=== PATIENT | male | born 1980 | race Caucasian/White ===

== ENCOUNTER 2020-05-07 10:49 | Outpatient (REF) | payer OTHER, SELFPAY ==
[2020-05-07 11:28] LABS: MANUAL DIFF FLAG NO
[2020-05-07 11:32] LABS: Basophils Percent Auto 0.5 % (0-2); Eosinophils Absolute Auto 0.1 X10*3/uL (0.0-0.4); Eosinophils Percent Auto 2.1 % (0-4); Hematocrit 48.8 % (42-52); Hemoglobin 16.8 g/dl (14.0-18.0); Imm Gran Abs Auto 0.01 X10*3/uL (0.00-0.03); Imm Gran Pct Auto 0.2 % (0.0-0.4); Lymphocytes Absolute Auto 1.8 X10*3/uL (1.2-4.9); Lymphocytes Percent Auto 30.2 % (20-40); Mean Corpuscular HGB Conc 34.4 g/dl (31.0-36.0); Mean Corpuscular Hemoglobin 31.3 pg (27.0-33.0); Mean Platelet Volume 9.7 fL (9.4-12.4); Monocytes Absolute Auto 0.7 X10*3/uL (0.1-1.2); Monocytes Percent Auto 12.6 % (2-11); Neutrophils Absolute Auto 3.2 X10*3/uL (2.0-8.3); Neutrophils Percent Auto 54.4 % (45-73); Platelet Count 223 X10*3/uL (160-400); Red Blood Count 5.36 X10*6/uL (4.60-5.80); Red Cell Distribution Width 13.2 % (11.0-16.0); White Blood Count 5.8 X10*3/uL (4.8-10.8)
[2020-05-07 12:10] LABS: Alanine Aminotransferase 35 U/L (0-40); Albumin Level 4.5 g/dL (3.5-5.0); Alkaline Phosphatase 56 U/L (39-117); Anion Gap 15 (12-20); Aspartate Amino Transferase 31 U/L (5-37); Bilirubin Total 1.1 mg/dL (0.0-1.0); Blood Urea Nitrogen 21 mg/dL (9-16); Carbon Dioxide 26 mmol/L (22-29); Chloride 102 mmol/L (96-108); Cholesterol 246 mg/dL; Estimated Glomerular Filt Rate > 60; Glucose Fasting 86 mg/dL (60-99); HDL Cholesterol 71 mg/dL; LDL Cholesterol Calculated 140 mg/dl; Potassium 4.6 mmol/L (3.3-5.1); Sodium 138 mmol/L (135-145); Total Protein 7.2 g/dL (6.5-8.0); Triglycerides 177 mg/dL
[2020-05-07 12:20] LABS: TSH reflex Free T4 3.38 uIU/mL (0.32-4.0)
[2020-05-10 10:52] LABS: Vitamin D 25-OH, D2 <4 ng/mL; Vitamin D 25-OH, D3 30 ng/mL; Vitamin D 25-OH, Total 30 ng/mL (30-100)
== END 2020-05-07 10:50 | disposition home or self-care (01) ==
LOC: HO.LAB 10:49
PROVIDERS: PCP Internal Medicine; Visit Provider Internal Medicine
DX: E55.9 Vitamin D deficiency, unspecified (principal); E66.9 Obesity, unspecified; E78.5 Hyperlipidemia, unspecified
CPT/HCPCS: 36415; 80053; 80061; 82306; 84443; 85025

== ENCOUNTER 2020-10-28 10:33 | Outpatient (REF) | payer OTHER, SELFPAY ==
[2020-10-28 11:42] LABS: MANUAL DIFF FLAG NO
[2020-10-28 11:51] LABS: Basophils Percent Auto 0.5 % (0-2); Eosinophils Absolute Auto 0.1 X10*3/uL (0.0-0.4); Eosinophils Percent Auto 0.9 % (0-4); Hemoglobin 16.6 g/dl (14.0-18.0); Imm Gran Abs Auto 0.02 X10*3/uL (0.00-0.03); Imm Gran Pct Auto 0.2 % (0.0-0.4); Lymphocytes Absolute Auto 1.7 X10*3/uL (1.2-4.9); Lymphocytes Percent Auto 18.8 % (20-40); Mean Corpuscular HGB Conc 33.2 g/dl (31.0-36.0); Mean Corpuscular Hemoglobin 29.4 pg (27.0-33.0); Mean Corpuscular Volume 88.7 fL (80-98); Mean Platelet Volume 10.2 fL (9.4-12.4); Monocytes Absolute Auto 0.7 X10*3/uL (0.1-1.2); Monocytes Percent Auto 7.7 % (2-11); Neutrophils Absolute Auto 6.4 X10*3/uL (2.0-8.3); Neutrophils Percent Auto 71.9 % (45-73); Platelet Count 232 X10*3/uL (160-400); Red Blood Count 5.64 X10*6/uL (4.60-5.80); White Blood Count 8.9 X10*3/uL (4.8-10.8)
[2020-10-28 12:16] LABS: Alanine Aminotransferase 34 U/L (0-40); Albumin Level 4.6 g/dL (3.5-5.0); Alkaline Phosphatase 59 U/L (39-117); Anion Gap 13 (12-20); Aspartate Amino Transferase 24 U/L (5-37); Bilirubin Total 0.8 mg/dL (0.0-1.0); Blood Urea Nitrogen 14 mg/dL (9-16); Calcium 9.4 mg/dL (8.4-10.2); Carbon Dioxide 25 mmol/L (22-29); Chloride 104 mmol/L (96-108); Estimated Glomerular Filt Rate > 60; Glucose Random 87 mg/dL (60-115); Potassium 4.7 mmol/L (3.3-5.1); Sodium 137 mmol/L (135-145); Total Protein 7.2 g/dL (6.5-8.0)
[2020-10-30 21:26] LABS: TS Negative Control Passed; TS Panel A 0; TS Panel B 0; TS Positive Control Passed; TSpotTB Negative (SeeBelow)
== END 2020-10-28 10:34 | disposition home or self-care (01) ==
LOC: HO.LAB 10:33
PROVIDERS: PCP Internal Medicine; Referring Provider Physician Assistant Medical; Visit Provider Internal Medicine
DX: L40.0 Psoriasis vulgaris (principal); L40.59 Other psoriatic arthropathy; Z79.899 Other long term (current) drug therapy
CPT/HCPCS: 36415; 80053; 85025; 86481

== ENCOUNTER 2021-04-30 10:14 | Outpatient (REF) | payer OTHER, SELFPAY ==
[2021-04-30 10:55] LABS: Mean Corpuscular Hemoglobin 30.1 pg (27.0-33.0)
[2021-04-30 10:57] LABS: Basophils Absolute Auto 0.1 X10*3/uL (0.0-0.2); Basophils Percent Auto 0.8 % (0-2); Eosinophils Absolute Auto 0.1 X10*3/uL (0.0-0.4); Eosinophils Percent Auto 1.8 % (0-4); Hematocrit 47.7 % (42.0-52.0); Hemoglobin 16.2 g/dl (14.0-18.0); Imm Gran Abs Auto 0.02 X10*3/uL (0.00-0.03); Imm Gran Pct Auto 0.3 % (0.0-0.4); Lymphocytes Percent Auto 30.7 % (20-40); Mean Corpuscular Volume 88.7 fL (80.0-98.0); Monocytes Absolute Auto 0.7 X10*3/uL (0.1-1.2); Monocytes Percent Auto 10.1 % (2-11); Neutrophils Absolute Auto 3.7 x10*3/uL (2.0-8.3); Neutrophils Percent Auto 56.3 % (45-73); Red Blood Count 5.38 X10*6/uL (4.60-5.80); Red Cell Distribution Width 12.3 % (11.0-16.0)
[2021-04-30 10:58] LABS: White Blood Count 6.6 X10*3/uL (4.8-10.8)
[2021-04-30 11:26] LABS: Alanine Aminotransferase 71 U/L (0-40); Albumin Level 4.5 g/dL (3.5-5.0); Alkaline Phosphatase 67 U/L (39-117); Anion Gap 13 (12-20); Aspartate Amino Transferase 31 U/L (5-37); Bilirubin Total 0.8 mg/dL (0.0-1.0); Blood Urea Nitrogen 13 mg/dL (9-16); Carbon Dioxide 26 mmol/L (22-29); Chloride 103 mmol/L (96-108); Cholesterol 253 mg/dL; Estimated Glomerular Filt Rate > 60; Glucose Fasting 87 mg/dL (60-99); HDL Cholesterol 48 mg/dL; LDL Cholesterol Calculated 170 mg/dl; Potassium 4.5 mmol/L (3.3-5.1); Sodium 137 mmol/L (135-145); Total Protein 7.2 g/dL (6.5-8.0); Triglycerides 177 mg/dL
[2021-05-02 18:42] LABS: TS Negative Control Passed; TS Panel A 0; TS Panel B 0; TS Positive Control Passed; TSpotTB Negative (Negative)
== END 2021-04-30 10:15 | disposition home or self-care (01) ==
LOC: HO.LAB 10:14
PROVIDERS: PCP Internal Medicine; Visit Provider Internal Medicine
DX: Z11.1 Encounter for screening for respiratory tuberculosis (principal); L40.50 Arthropathic psoriasis, unspecified; E78.5 Hyperlipidemia, unspecified
CPT/HCPCS: 36415; 80053; 80061; 85025; 86481

== ENCOUNTER 2021-04-30 10:47 | Emergency (ER) | payer OTHER, SELFPAY ==
--- NOTE | 2021-04-30 | ECG_ITS ---
Test Reason : SYNCOPE Blood Pressure : / mmHG Vent. Rate : 056 BPM Atrial Rate : 056 BPM P-R Int : 138 ms QRS Dur : 092 ms QT Int : 436 ms P-R-T Axes : 045 041 042 degrees QTc Int : 420 ms Sinus bradycardia Otherwise normal ECG When compared with ECG of 23-JAN-2016 09:51, No significant change was found Referred By: Generic ED Physician Electronically Signed By:SHAMEKA NIÑO MD
[2021-04-30 10:48] VITALS: BP 102/68; PULSE 50; RESP 18; TEMP 36.9; O2SAT 98; BMI 35.9
[2021-04-30 11:03] LABS: Glucose, Whole Blood 94 mg/dL (60-115)
--- NOTE | 2021-04-30 11:20 | ED_ITS ---
HPI - Syncope General Chief Complaint: Syncope Stated Complaint: Syncope Time Seen by Provider: 04/30/21 11:11 Source: patient Mode of arrival: wheelchair Limitations: no limitations History of Present Illness HPI narrative: 40-year-old male who presents emergency department for evaluation of syncopal episode in the phlebotomy department. The patient states that he came to the hospital today to get routine blood work prior to his PCP visit. He states that he was not ill in any way prior to getting his blood drawn. He states that while he was getting his blood drawn, before not miss had to adjust the needle and this made him feel bad. He states that he felt lightheaded and dizzy as if he is going to pass out. He states that his vision then went from grade black and he passed out. It was reported that the patient passed out in his chair and did not fall out of the chair. The patient states this has happened 2 minutes the past when he has gotten his blood drawn. At the time my evaluation, he has no complaints. Related Data Home Medications Medication Instructions Recorded Confirmed adalimumab 40 mg/0.4 mL 40 mg SUBCUT Q2W 04/30/21 04/30/21 subcutaneous pen kit (Humira(CF) Pen) escitalopram oxalate 5 mg tablet 2.5 mg PO DAILY tab 04/30/21 Allergies Allergy/AdvReac Type Severity Reaction Status Date / Time No Known Allergies Allergy Verified 04/30/21 09:53 Review of Systems Verdana 4l Review of Systems: Yes all other systems are reviewed and Verdana 4d are negative [facility] Past Medical History [facility] Narrative: Past medical history: Vasovagal syncope with blood draws. Medical History (Updated 04/30/21 @ 11:26 by Kevin Joseph MD) Alcohol abuse Depression with anxiety Dyslipidemia Encounter for physical examination History of substance abuse Obese Psoriatic arthritis Syncope Surgical History No pertinent past surgical history Family History Family History Mother Breast cancer Father Diabetes Social History Social History Housing: Apartment Alcohol intake: never Patient Tobacco Use Status: Former Tobacco user Tobacco use type: Cigarette e-Cigarette/Vaping Use: Currently Using Second Hand Smoke Exposure: No Use of substances other than those prescribed or required for medical reasons: No Advance Directives: No Advance Directives Information Provided: No service: No Current occupational status: employed Current occupational exposures/hazards: No Physical Exam Verdana 4l Vital Signs: Verdana 4d Verdana 4d Vital Signs: Verdana 4d Verdana 4Bd Last Vital Signs Verdana 4d Inpatient Nursing Aide New 4d Inpatient Nursing Aide New 4d Temp 98.4 F 04/30/21 10:48 Inpatient Nursing Aide New 4d Pulse 50 04/30/21 10:48 Inpatient Nursing Aide New 4d Resp 18 04/30/21 10:48 BP 102/68 04/30/21 10:48 Pulse Ox 98 04/30/21 10:48 BMI result Body Mass Index 35.9 Const: General: cooperative and no acute distress Orientation/consciousness: oriented to person and oriented to place Limitations: no limitations HENMT: Head: Yes normal to inspection, Yes normocephalic and Yes atraumatic Ears: external ears normal General nose exam: Normal external nose present Face and sinus: Yes normal facial exam Mouth: Normal oral and palatal mucosa present Throat: Yes posterior oropharynx normal Eyes: General: appearance normal, both eyes and all related structures Pupils: Equal, round and reactive pupils present Neck: Neck: Yes normal visual inspection, Yes no lymphadenopathy, Yes trachea midline and Yes supple Chest: Chest palpation & inspection: normal inspection of the chest and normal palpation of entire chest wall Resp: Effort & Inspection: normal respiratory effort and able to speak in complete sentences Auscultation: clear to auscultation bilaterally Cardio: Rate: regular rate Rhythm: regular rhythm Heart sounds: S1 normal heart sound present, S2 normal heart sound present and no murmurs GI: Inspection: Yes normal to inspection Palpation (GI): Soft to palpation, nontender and no guarding Auscultation: normal bowel sounds : General: Yes no CVA tenderness Back/Spine/Pelvis: Back: no CVA tenderness Skin: General skin exam: no rashes or lesions noted Neuro: General: oriented to person and oriented to place Cranial nerves: Yes CN's II-XII intact bilaterally and Yes Equal, round and reactive pupils present Cognition (Neuro): normal cognition Motor exam (neuro): 5/5 motor strength present throughout Extrem: General: Yes normal to inspection Psych: Appearance: grossly normal Speech and movement: Normal speech and movement present Affect: normal affect Attitude: cooperative Thought process: Normal thought process present Thought content: Normal thought content present Course Course Course Narrative: 40-year-old male who presents emergency department for evaluation of a syncopal episode that occurred in the phlebotomy department while he was getting his blood drawn. The patient's description of what abdomen is consistent with vasovagal syncope. Here in the emergency department has no complaints he was not ill in any way prior to getting his blood drawn. The patient had a 12 EKG which did reveal a peaked T-waves in V2 and bradycardia but otherwise was a normal EKG. Patient's physical examination was unremarkable. The patient's presentation is consistent with vasovagal syncope. The patient had all of his blood drawn for his routine tests from phlebotomy except for T spot. We will draw this test here in the emergency department and discharge the patient home. MDM - Syncope Lab Data Labs: Lab Results 04/30/21 Range/Units 11:00 POC Glucose 94 (60-115) mg/dL Discharge Plan Discharge Clinical Impression: Vasovagal syncope Patient Disposition: Home, Self-Care Instructions: Syncope (ED) Additional Instructions: You fainted today while you had your blood drawn. This is called vasovagal syncope. Sometimes when you get your blood drawn, it stimulates a nerve in your body called the vagal nerve which then causes your blood pressure to drop and your pulse to slow down which then causes you to pass out. Next time you get your blood drawn tell them that you pass out and that you need to lie down to get your blood drawn. Also tell them you need to lie down for at least 15-20 minutes after the blood draw to make sure that you do not pass out when you get up. Your EKG was unremarkable. The lab was able to draw all of your blood today, except for 1 test called a T spot which we are going to draw here in the emergency department for you. Follow-up with your doctor in 2 days. Please return to the emergency department if your symptoms get worse or if you develop any symptoms that are concerning to you. Prescriptions: No Action Humira(CF) Pen 40 mg/0.4 mL pen injector kit 40 mg subcut Q2W 0RF escitalopram oxalate 5 mg tablet 2.5 mg PO DAILY 0RF
--- NOTE | 2021-04-30 11:35 | PC.NURSE ---
the rest of the labs are being completed from outpatient order
== END 2021-04-30 12:04 | disposition home or self-care (01) ==
PROVIDERS: Emergency Provider Emergency Medicine Emergency Medical Services; PCP Internal Medicine
DX: R55 Syncope and collapse (principal)
CPT/HCPCS: 82947; 93005; 99283; 99284

== ENCOUNTER 2022-12-11 07:19 | Outpatient (REF) | payer OTHER, SELFPAY ==
[2022-12-11 07:47] LABS: MANUAL DIFF FLAG NO
[2022-12-11 08:18] LABS: Basophils Absolute Auto 0.1 X10*3/uL (0.0-0.2); Basophils Percent Auto 0.7 % (0-2); Eosinophils Absolute Auto 0.2 X10*3/uL (0.0-0.4); Eosinophils Percent Auto 2.2 % (0-4); Hematocrit 46.7 % (42.0-52.0); Hemoglobin 15.8 g/dl (14.0-18.0); Imm Gran Abs Auto 0.01 X10*3/uL (0.00-0.03); Imm Gran Pct Auto 0.1 % (0.0-0.4); Lymphocytes Absolute Auto 1.9 X10*3/uL (1.2-4.9); Mean Corpuscular HGB Conc 33.8 g/dl (31.0-36.0); Mean Corpuscular Hemoglobin 29.6 pg (27.0-33.0); Mean Corpuscular Volume 87.5 fL (80.0-98.0); Mean Platelet Volume 10.9 fL (9.4-12.4); Monocytes Absolute Auto 0.7 X10*3/uL (0.1-1.2); Monocytes Percent Auto 9.2 % (2-11); Neutrophils Absolute Auto 4.7 x10*3/uL (2.0-8.3); Neutrophils Percent Auto 62.8 % (45-73); Platelet Count 241 X10*3/uL (160-400); Red Blood Count 5.34 X10*6/uL (4.60-5.80); Red Cell Distribution Width 12.5 % (11.0-16.0); White Blood Count 7.4 X10*3/uL (4.8-10.8)
[2022-12-11 08:45] LABS: Alanine Aminotransferase 31 U/L (0-40); Albumin Level 4.3 g/dL (3.5-5.0); Alkaline Phosphatase 69 U/L (39-117); Anion Gap 12 (12-20); Aspartate Amino Transferase 18 U/L (5-37); Bilirubin Direct 0.2 mg/dL (0.0-0.5); Bilirubin Total 0.6 mg/dL (0.0-1.0); Blood Urea Nitrogen 13 mg/dL (9-16); Carbon Dioxide 24 mmol/L (22-29); Chloride 107 mmol/L (96-108); Estimated Glomerular Filt Rate > 60; Glucose Random 87 mg/dL (60-115); Potassium 4.2 mmol/L (3.3-5.1); Sodium 139 mmol/L (135-145)
[2022-12-11 09:00] LABS: Alanine Aminotransferase 31 U/L (0-40); Albumin Level 4.4 g/dL (3.5-5.0); Alkaline Phosphatase 69 U/L (39-117); Anion Gap 12 (12-20); Aspartate Amino Transferase 18 U/L (5-37); Bilirubin Total 0.6 mg/dL (0.0-1.0); Blood Urea Nitrogen 14 mg/dL (9-16); Calcium 9.9 mg/dL (8.4-10.2); Carbon Dioxide 24 mmol/L (22-29); Chloride 107 mmol/L (96-108); Cholesterol 192 mg/dL (<200); Estimated Glomerular Filt Rate > 60; Glucose Fasting 88 mg/dL (60-99); HDL Cholesterol 39 mg/dL (>40); LDL Cholesterol Calculated 130 mg/dL (<100); Potassium 4.1 mmol/L (3.3-5.1); Sodium 139 mmol/L (135-145); Triglycerides 115 mg/dL (<150)
[2022-12-11 09:08] LABS: TSH reflex Free T4 3.64 uIU/mL (0.32-4.0); Vitamin D 25-OH Total 52.7 ng/mL (>30)
[2022-12-11 09:21] LABS: Folate 14.4 ng/mL (> or = 4.0); Vitamin B12 558 pg/mL (200-900)
[2022-12-11 09:45] LABS: HBS Num1 2.16 mIU/mL (0-7.99); HBc Num1 0.07 S/CO (0.00-0.79); HBsAGNum1 0.32 S/CO (0.00-0.99); Hepatitis B Core Antibody Nonreactive (Nonreactive); Hepatitis B Surface Antigen Negative (Negative); ~HepC Num1 0.26 S/CO (0.00-0.79); ~Hepatitis B Surface Antibody NONREACTIVE (Nonreactive); ~Hepatitis C Antibody Nonreactive (Nonreactive)
[2022-12-13 00:24] LABS: LDL Cholesterol Direct 134 mg/dL (<100)
== END 2022-12-11 07:20 | disposition home or self-care (01) ==
LOC: HO.LAB 07:19
PROVIDERS: Absent Provider Physician Assistant Medical; PCP Internal Medicine; Visit Provider Nurse Practitioner Family
DX: Z00.00 Encounter for general adult medical examination without abnormal findings (principal); E78.5 Hyperlipidemia, unspecified; L40.0 Psoriasis vulgaris
CPT/HCPCS: 36415; 80048; 80053; 80061; 80076; 82248; 82306; 82607; 82746; 83721; 84443; 85025; 86481; 86704; 86706; 86803; 87340

== ENCOUNTER 2023-01-04 06:45 | Outpatient (REF) | payer OTHER, SELFPAY ==
[2023-01-07 00:09] LABS: TS Negative Control Passed; TS Panel A 0; TS Panel B 0; TS Positive Control Passed; TSpotTB Negative (Negative)
== END 2023-01-04 06:46 | disposition home or self-care (01) ==
LOC: HO.LAB 06:45
PROVIDERS: Visit Provider Physician Assistant Medical
DX: L40.0 Psoriasis vulgaris (principal)
CPT/HCPCS: 36415; 86481

== ENCOUNTER 2023-06-14 15:36 | Outpatient (AMB) | payer OTHER, SELFPAY ==
--- NOTE | 2023-06-14 16:00 | MHC.PC.OV ---
Vital Signs 06/14/23 16:04 Height 5 ft 10 in Weight 195 lb 4 oz BMI 28.0 BP 112/78 Blood Pressure Location Lt brachial Position Sitting Respiration 16 Pulse 73 Pulse Source Pulse Oximeter Pulse Oximetry (%) 98 Oxygen Delivery Method Room Air Intake Visit Reasons: Annual Exam Intake Note: Patient is here today for a physical. 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 Accompanied by: Self / Same As Patient Allergies No Known Allergies Allergy (Verified 06/14/23 16:12) Medication List - Last Reconciled 06/14/23 by Kyra Harvey MD adalimumab (Humira) 40 mg subcut Q2W Tobacco use date assessed: 06/14/23 Dental Screening Dental Screen Date: 06/14/23 Did you have a dental visit in the last 12 months?: Yes Did you have a dental problem in the last 6 months where you did not have access to dental care?: No Was dental information given to patient?: Patient has dentist HPI HPI Comments History of Present Illness Details This is a 42-year-old male with psoriatic arthritis that comes for his physical exam. Complains of hip pain that has been bothering him for few months. Also has right lower quadrant abdominal pain that also has been present for a few months. No change in bowel habits. Says that he urinates more frequently. [facility] Medical History Syncope Encounter for physical examination Dyslipidemia Psoriatic arthritis History of substance abuse Alcohol abuse Depression with anxiety Obese Surgical History No pertinent past surgical history Family History Mother Breast cancer Father Diabetes Social History (Updated 06/14/23 @ 16:15 by Kyra Harvey MD) Housing: Apartment Alcohol intake: never Patient Tobacco Use Status: Former Tobacco user Tobacco use type: Cigarette e-Cigarette/Vaping Use: Former Use Second Hand Smoke Exposure: No service: No Current occupational status: employed Current occupational exposures/hazards: No Cognitive needs: No Hearing needs: No Vision needs: No Questionnaire PHQ-9 Over the last 2 weeks, how often have you been bothered by any of the following problems? 1. Little interest or pleasure in doing things: not at all 2. Feeling down, depressed, or hopeless: not at all 3. Trouble falling or staying asleep, or sleeping too much: not at all 4. Feeling tired or having little energy: not at all 5. Poor appetite or overeating: not at all 6. Feeling bad about yourself - or that you are a failure or have let yourself or your family down: not at all 7. Trouble concentrating on things, such as reading the newspaper or watching television: not at all 8. Moving or speaking so slowly that other people could have noticed. Or the opposite - being so fidgety or restless that you have been moving around a lot more than usual: not at all 9. Thoughts that you would be better off or of hurting yourself in some way: not at all Total score: 0 Depression Screening Interpretation: Negative Depression Screening Done: Yes 00651 - PHQ-9 Billing: Yes Source: Developed by Drs. Selvin Lynn, Prema Ramirez, Sam Dunham and colleagues, with an educational danis from [employer]. Thrive Questionnaire Date Thrive assessed: 06/14/23 I am a: Patient What is your living situation today?: I have a steady place to live Within the past 12 months, did the food you bought not last and you didn't have the money to get more?: Never true Within the past 12 months, did you worry whether your food would run out before you got money to buy more?: Never true Do you have trouble paying for medicines?: No Do you have trouble getting transportation to medical appointments?: No Do you have trouble paying your heating and electricity bill?: No Do you have trouble taking care of your child, family member or friend?: No Do you have trouble with day-to-day activities such as bathing, preparing meals, shopping, managing finances, etc.?: No Are you currently unemployed and looking for a job?: No Are you interested in more education?: No Please select the resources that you would like help with: None Currently or been in a relationship where the following occur: no concerns reported THRIVE Score: 0 AUDIT C Alcohol Use Questionnaire (AUDIT-C) 1. How often do you have a drink containing alcohol?: Never 2. How many drinks containing alcohol do you have on a typical day when you are drinking?: 1 or 2 (0) 3. How often do you have six or more drinks on one occasion?: Never Total Score: 0 Score Reviewed/Action Taken: No GREGORY-7 AMB Questionnaire GREGORY-7 Date GREGORY - 7 assessed: 06/14/23 Feeling nervous, anxious, or on edge: 0 = Not at all Not being able to stop or control worryin = Not at all Worrying too much about different things: 0 = Not at all Trouble relaxin = Not at all Being so restless that it is hard to sit still: 0 = Not at all Becoming easily annoyed or irritable: 0 = Not at all Feeling afraid as if something awful might happen: 0 = Not at all Total GREGORY-7 score (0-4 normal; 5-9 mild; 10-14 moderate; 15-21 severe): 0 Source: Developed by Drs. Selvin Lynn, Prema Ramirez, Sam Dunham and colleagues, with an educational danis from [employer]. GREGORY-7 Assessment Billing GREGORY-7 Assessment Tool: GREGORY-7 Assessment 21578 Review of Systems Const All systems reviewed & are unremarkable except as noted in HPI and below Eyes Reports no additional complaints, Denies change in vision and Denies other visual disturbances Card Denies chest pain at rest, Denies chest pain with activity, Denies edema, Denies irregular heart rhythm, Denies claudication, Denies dyspnea, Denies dyspnea on exertion, Denies orthopnea, Denies paroxysmal nocturnal dyspnea and Denies slow heart rate Resp Denies cough, Denies dyspnea and Denies dyspnea on exertion GI Denies abdominal pain, Denies change in bowel habits, Denies excessive flatus, Denies nausea and Denies vomiting Denies urinary hesitancy, Denies urinary incontinence and Denies urinary urgency Musc Denies abnormal gait, Denies atrophy, Denies deformity, Reports arthralgias and Denies limited range of motion Skin/Breast Denies bleeding lesions, Denies changing lesions and Denies rash Neuro Denies abnormal gait and Denies lack of coordination Physical exam (Primary Care) Vital Signs: Last Vital Signs Pulse 73 06/14/23 16:04 Resp 16 06/14/23 16:04 BP 112/78 06/14/23 16:04 Pulse Ox 98 06/14/23 16:04 Oxygen Delivery Method Room Air 06/14/23 16:04 BMI result Body Mass Index 28.0 Tobacco/Smoking Status: Tobacco use Status Tobacco use date assessed 06/14/23 06/14/23 16:10 Patient Tobacco Use Status Former Tobacco user 06/14/23 16:15 Tobacco use type Cigarette 06/14/23 16:15 e-Cigarette/Vaping Use Former Use 06/14/23 16:15 PHQ-9: PHQ-9 Score PHQ-9: Total score 0 06/14/23 16:16 Depression Screening Interpretation: Negative Thrive Assessment: Date of Thrive Assessment Date Thrive assessed 06/14/23 06/14/23 16:10 Currently or been in a relationship where the following occur: no concerns reported Const Orientation/consciousness: patient oriented x3 HENMT Head: Yes normal to inspection, Yes normocephalic and Yes atraumatic Ears: external ears normal Eyes General: appearance normal, both eyes and all related structures Eyelids: Yes eyelids normal Conjunctivae: conjunctivae normal Neck Neck: Yes normal visual inspection and Yes supple Resp Effort & Inspection: normal respiratory effort Auscultation: clear to auscultation bilaterally Cardio Jugular venous distension: no JVD Rate: regular rate Rhythm: regular rhythm Heart sounds: S1 normal heart sound present and S2 normal heart sound present GI Inspection: Yes normal to inspection Palpation (GI): Soft to palpation and Tenderness to palpation present (GI) in the RLQ Auscultation: normal bowel sounds Skin General skin exam: no rashes or lesions noted Neuro General: patient oriented x3 and no focal motor deficits Extrem General: Yes full ROM Psych Appearance: grossly normal Assessment and Plan Assessment & Plan (1) Encounter for physical examination: Code(s): Z00.00 - Encounter for general adult medical examination without abnormal findings Plan: Repeat in a year (2) Psoriatic arthritis: Code(s): L40.50 - Arthropathic psoriasis, unspecified Plan: Continue Humira. Follow-up with dermatology. Orders: Orders PSA,Total (Free>4and<10) Today Z12.5 - Encounter for screening for malignant neoplasm of prostate Comprehensive Rudd. Panel Fast Today Z00.00 - Encounter for general adult medical examination without abnormal findings Lipid Panel Today E78.5 - Hyperlipidemia, unspecified, Z00.00 - Encounter for general adult medical examination without abnormal findings Thyroid Stimulating Hormone Today R63.4 - Abnormal weight loss Complete Blood Count Auto Diff Today L40.50 - Arthropathic psoriasis, unspecified US abdomen complete Today R10.31 - Right lower quadrant pain Referrals Rheumatology Referral L40.50 - Arthropathic psoriasis, unspecified Coding Level of Care Code Est Pt Prev Care 40-64y(96761) Diagnoses Encounter for physical examination Z00.00 Psoriatic arthritis L40.50 Additional Codes GREGORY-7 Assessment Billing - GREGORY-7 Assessment Tool: GREGORY-7 Assessment [id number] ([id number]) Time Spent (min) 32
[2023-06-14 16:04] VITALS: BP 112/78; PULSE 73; RESP 16; O2SAT 98; BMI 28.0
== END 2023-06-14 16:30 | disposition home or self-care (01) ==
PROVIDERS: Visit Provider Internal Medicine
DX: Z00.00 Encounter for general adult medical examination without abnormal findings (principal); L40.50 Arthropathic psoriasis, unspecified
CPT/HCPCS: 99396

== ENCOUNTER 2023-06-23 06:41 | Outpatient (REF) | payer OTHER, SELFPAY ==
[2023-06-23 06:58] LABS: MANUAL DIFF FLAG NO
[2023-06-23 07:31] LABS: Basophils Absolute Auto 0.1 X10*3/uL (0.0-0.2); Basophils Percent Auto 0.7 % (0-2); Eosinophils Absolute Auto 0.1 X10*3/uL (0.0-0.4); Eosinophils Percent Auto 2.1 % (0-4); Hematocrit 45.2 % (42.0-52.0); Hemoglobin 15.7 g/dl (14.0-18.0); Imm Gran Abs Auto 0.02 X10*3/uL (0.00-0.03); Imm Gran Pct Auto 0.3 % (0.0-0.4); Mean Corpuscular HGB Conc 34.7 g/dl (31.0-36.0); Mean Corpuscular Hemoglobin 30.7 pg (27.0-33.0); Mean Corpuscular Volume 88.3 fL (80.0-98.0); Mean Platelet Volume 9.9 fL (9.4-12.4); Monocytes Absolute Auto 0.7 X10*3/uL (0.1-1.2); Neutrophils Absolute Auto 3.8 x10*3/uL (2.0-8.3); Neutrophils Percent Auto 56.9 % (45-73); Platelet Count 223 X10*3/uL (160-400); Red Blood Count 5.12 X10*6/uL (4.60-5.80); Red Cell Distribution Width 12.6 % (11.0-16.0); White Blood Count 6.7 X10*3/uL (4.8-10.8)
[2023-06-23 07:49] LABS: Alanine Aminotransferase 37 U/L (0-40); Albumin Level 4.4 g/dL (3.5-5.0); Alkaline Phosphatase 65 U/L (39-117); Anion Gap 13 (12-20); Aspartate Amino Transferase 19 U/L (5-37); Bilirubin Total 0.5 mg/dL (0.0-1.0); Blood Urea Nitrogen 26 mg/dL (9-16); Calcium 9.3 mg/dL (8.4-10.2); Carbon Dioxide 25 mmol/L (22-29); Chloride 107 mmol/L (96-108); Cholesterol 224 mg/dL (<200); Estimated Glomerular Filt Rate > 60; Glucose Fasting 96 mg/dL (60-99); HDL Cholesterol 54 mg/dL (>40); LDL Cholesterol Calculated 146 mg/dL (<100); Potassium 4.2 mmol/L (3.3-5.1); Sodium 141 mmol/L (135-145); Total Protein 7.1 g/dL (6.5-8.0); Triglycerides 123 mg/dL (<150)
[2023-06-23 07:51] LABS: PSA,Total (Free>4and<10) 0.48 ng/mL (0.00-4.00)
[2023-06-23 07:53] LABS: Thyroid Stimulating Hormone 3.41 uIU/mL (0.32-4.0)
== END 2023-06-23 06:42 | disposition home or self-care (01) ==
LOC: HO.LAB 06:41
PROVIDERS: PCP Internal Medicine; Visit Provider Internal Medicine
DX: Z00.00 Encounter for general adult medical examination without abnormal findings (principal); Z12.5 Encounter for screening for malignant neoplasm of prostate; L40.50 Arthropathic psoriasis, unspecified; E78.5 Hyperlipidemia, unspecified; R63.4 Abnormal weight loss
CPT/HCPCS: 36415; 80053; 80061; 84153; 84443; 85025

== ENCOUNTER 2023-06-30 07:40 | Outpatient (REF) | payer OTHER, SELFPAY ==
--- NOTE | ~2023-06-30 | US_ITS ---
EXAMINATION: US ABDOMEN LIMITED CLINICAL INFORMATION: Right lower quadrant pain. Rule out hernia. COMPARISON: None available. TECHNIQUE: Real-time imaging of the RLQ/pelvis. FINDINGS: Targeted ultrasound images were obtained by the residential supervisor of the area of concern as indicated by the patient in the right lower quadrant/pelvis and demonstrated no hernia. Large amount of peristalsing bowel in this region. Limited visualization due to bowel gas. Radiologist was not in attendance. Images were later provided for interpretation. US/US abdomen limited IMPRESSION: No hernia identified in the area of concern as indicated by the patient in the right lower quadrant/pelvis. Large amount of peristalsing bowel in this region. Limited visualization due to bowel gas. CT scan could be considered for further evaluation.
== END 2023-06-30 07:41 | disposition home or self-care (01) ==
LOC: HO.US 07:40
PROVIDERS: PCP Internal Medicine; Visit Provider Internal Medicine
DX: R10.31 Right lower quadrant pain (principal)
CPT/HCPCS: 76705

== ENCOUNTER 2023-08-24 06:44 | Outpatient (REF) | payer OTHER, SELFPAY ==
--- NOTE | ~2023-08-24 | CT_ITS ---
EXAMINATION: CT ABDOMEN AND PELVIS WITH CONTRAST CLINICAL INFORMATION: Right lower quadrant pain. COMPARISON: Ultrasound abdomen 06/30/2023. TECHNIQUE: Multidetector volumetric images were obtained from the superior aspect of the liver through the pubic symphysis following administration 85 mL of Omnipaque 350 intravenous contrast. Sagittal and coronal reformatted images were obtained on the technologist's workstation. Oral contrast: Yes This CT examination was performed using dose optimization techniques as appropriate, variously including the following: *Automated exposure control *Adjustment of mA and/or kV according to patient size (this includes techniques or standardized protocols for targeted exams where dose is matched to indication/reason for exam; i.e. extremities or head) *Use of iterative reconstruction technique DLP: 483 mGy-cm FINDINGS: LUNG BASES: There is a 2 mm lingular nodule (4:13 along with two 3 mm left lower lobe nodules (4:24 and 89). No infiltrates or effusions are seen. LIVER, GALLBLADDER, AND BILIARY TREE: The liver is normal in size, shape, and attenuation. No focal hepatic lesion or biliary ductal dilatation is present. The gallbladder is unremarkable with no evidence of radiopaque gallstones, gallbladder wall thickening, or obvious pericholecystic inflammatory changes. PANCREAS: Unremarkable. SPLEEN: Unremarkable. ADRENAL GLANDS: Unremarkable. KIDNEYS AND URETERS: The kidneys are normal in size, shape, and attenuation. There is some minimal fullness in the left renal collecting system along with some Bosniak class I left-sided parapelvic cysts which need no additional imaging or follow up. No gross hydronephrosis, hydroureter, or calculi are seen. No perinephric stranding. No suspicious renal masses. BLADDER: Unremarkable. GASTROINTESTINAL TRACT: The small and large bowel is unremarkable. The appendix is unremarkable. ABDOMINAL WALL: No significant hernia is appreciated. LYMPH NODES: Normal. VASCULAR: Unremarkable. PELVIC VISCERA: Unremarkable. OSSEOUS STRUCTURES: Unremarkable. Mild degenerative changes are seen in the lower thoracic spine and at L5-S1. CT/CT abdomen pelvis w IV con IMPRESSION: 1. A cause for the patient's right lower quadrant pain has not been found. The appendix is normal. 2. Incidental note is made of a few tiny pulmonary nodules, minimal fullness in the left renal collecting system and mild degenerative changes in the spine. According to the UPDATED 2017 Fleischner Society recommendations, the advised follow up imaging for solid nodules <6 mm in the middle/lower lobes is no routine follow up.
[2023-08-24] MEDS: iohexoL 350 MG/ML 100 ML INFUS..BTL 85 ML IV (09:22)
[2023-08-24] MEDS: Barium Sulfate Oral (Mocha) 450 ML ORAL.SUSP 900 ML PO (09:23)
== END 2023-08-24 06:45 | disposition home or self-care (01) ==
LOC: HO.CT 06:44
PROVIDERS: PCP Internal Medicine; Visit Provider Internal Medicine
DX: R10.31 Right lower quadrant pain (principal)
CPT/HCPCS: 74177; Q9967

== ENCOUNTER 2023-10-26 16:47 | Outpatient (REF) | payer OTHER, SELFPAY ==
--- NOTE | ~2023-10-26 | CT_ITS ---
EXAMINATION: CT CHEST WITHOUT CONTRAST CLINICAL INFORMATION: Pulmonary nodules; other nonspecific abnormal finding lung field. COMPARISON: No prior chest CT. Correlation made with CT abdomen and pelvis 08/24/2023. TECHNIQUE: Multidetector volumetric CT imaging of the chest was obtained after without intravenous contrast. Axial MIP volume rendering provided. Sagittal and coronal reformatted images were obtained. This CT examination was performed using dose optimization techniques as appropriate, variously including the following: *Automated exposure control *Adjustment of mA and/or kV according to patient size (this includes techniques or standardized protocols for targeted exams where dose is matched to indication/reason for exam; i.e. extremities or head) *Use of iterative reconstruction technique DLP: 175 mGy-cm Please note, due to [facility] contractual, systems, and staffing issues, an [facility] radiologist was not available for review and dictation of this case until 12/08/2023. FINDINGS: PULMONARY NODULES: -There are two adjacent 3 mm calcified granuloma in the lateral right upper lobe (series 11, image 64). These are benign. -3 mm nodule anterolateral right upper lobe (series 11, image 74). -Average diameter of 5 mm linear nodule within the mid major fissure (series 11, image 97), most consistent with intrapulmonary lymph node. -3 mm nodule superior segment right lower lobe anteriorly, just posterior to the major fissure (series 11, image 103). -4 mm nodule superior segment right lower lobe laterally (series 11, and 118). -4 mm nodule lateral superior segment right lower lobe (series 11, image 140). This is stable and benign. -3 mm left upper lobe nodule anteriorly (series 11, image 49). -3 mm nodule anterior left lower lobe just posterior to the major fissure (series 11, image 158). This is stable. -Average diameter 4 mm nodule within the major fissure inferiorly (series 11, image 143), stable and consistent with intrapulmonary lymph node. -5 mm triangular nodule with pleural tag in the lingular segment medially (series 11, image 99), consistent with intrapulmonary lymph node. -Likely calcified 4 mm nodule posterior left lower lobe (series 11, image 139), stable. This is benign. -A few additional 2 to 3 mm nodules in the left lung are present. LUNGS: -The lungs are clear bilaterally. There is no evidence of interstitial lung disease. -Small airways are normal. No bronchiectasis or wall thickening. No endobronchial filling defects. -There are no consolidations or abnormal groundglass opacities. There is no emphysema. -The trachea and central airways are normal. PLEURA: There is no pleural effusion. No pleural mass or thickening. MEDIASTINUM: -Normal thyroid. -There are scattered borderline enlarged lymph nodes in the mediastinum including the pretracheal and prevascular region, largest measuring 8 mm short axis prevascular. These are statistically benign and reactive. They maintain normal morphology and fatty arianne. -Aorta is normal in caliber and course with no calcifications. There is no aneurysm. -Main pulmonary artery is normal. -Heart size is normal. No pericardial effusion. -Esophagus is normal. -Minimal LAD coronary calcifications. AXILLA/CHEST WALL: There is mild bilateral male gynecomastia right greater than left. There are no masses or abnormal lymph nodes. UPPER ABDOMEN: No abnormalities. OSSEOUS STRUCTURES: Unremarkable. CT/CT chest wo con - High Res IMPRESSION: 1. Scattered pulmonary nodules as detailed, largest 5 mm in the lingular segment with morphology suggestive of intrapulmonary lymph node. Nodules seen on previous CT abdomen and pelvis are unchanged. All these nodules have chance of malignancy less than 1%, and in a high-risk patient, a 1-year follow-up CT could be considered. 2. There is no evidence of interstitial lung disease. The lungs are clear with no active disease. 3. Mild bilateral male gynecomastia. 4. Scattered mediastinal lymph nodes are within normal size limits and likely reactive in etiology. No definite pathologic adenopathy. 5. Additional ancillary findings as discussed in the body of the report. Fleischner guidelines were followed. Electronically signed by: Govind Hernandez MD 12/08/2023 09:21 AM EDT
== END 2023-10-26 16:48 | disposition home or self-care (01) ==
LOC: HO.CT 16:47
PROVIDERS: PCP Internal Medicine; Visit Provider Internal Medicine
DX: R91.8 Other nonspecific abnormal finding of lung field (principal)
CPT/HCPCS: 71250

== ENCOUNTER → 2023-10-26 16:48 | Outpatient (BNV) | payer OTHER, SELFPAY | PROVIDERS: PCP Internal Medicine; Visit Provider Radiology Diagnostic Radiology | DX: R91.8 Other nonspecific abnormal finding of lung field (principal) | CPT/HCPCS: 71250 ==

== ENCOUNTER 2023-11-16 12:44 | Outpatient (AMB) | payer OTHER, SELFPAY ==
--- NOTE | 2023-11-16 12:46 | A.OFFVIS_ITS ---
Vital Signs 11/16/23 12:47 Height 5 ft 10 in Weight 203 lb 14.841 oz BMI 29.3 BP 122/74 Blood Pressure Location Lt brachial Position Sitting Pulse 73 Pulse Source Pulse Oximeter Pulse Oximetry (%) 99 Oxygen Delivery Method Room Air Intake Visit Reasons: Psoriasis/cm Intake Note: New patient, internally referred, presents to office today for psoriasis. Allergies No Known Allergies Allergy (Verified 11/16/23 12:49) Medication List - Last Reconciled 11/16/23 by Wayne Dejesus MD adalimumab (Humira) 40 mg subcut Q2W HPI Comments Details: This is a 42-year-old male with psoriasis and psoriatic arthritis who presents for evaluation. He states that he was diagnosed with psoriasis in his 20s. And was treated with different topical treatments. He was evaluated by Dr. Eng in 2017. He was started on methotrexate but it was not tolerate it due to transaminitis. He was then switched to Humira which was working very well. There were some lapses in his treatment. Most recently patient was off the Humira last year. That time he was having more joint pains especially of his knees, ankles and feet. His knees would swell up. He was started on Humira, initially weekly then transition to every other week. He states that the pain and swelling of his knees and ankles and feet has completely resolved. Her he gets intermittent pains in his neck, shoulders, low back. He would take ibupro fen 600 mg multiple times a week. Psoriasis is entirely cleared up. He has lost weight intentionally over the last few months. [facility] Medical History (Updated 11/16/23 @ 13:45 by Wayne Dejesus MD) Psoriasis Syncope Encounter for physical examination Dyslipidemia Psoriatic arthritis History of substance abuse Alcohol abuse Depression with anxiety Obese Surgical History No pertinent past surgical history Family History Mother Breast cancer Father Diabetes Social History Housing: Apartment Alcohol intake: never Patient Tobacco Use Status: Former Tobacco user Tobacco use type: Cigarette e-Cigarette/Vaping Use: Former Use Second Hand Smoke Exposure: No service: No Current occupational status: employed 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 [employer] Current occupational exposures/hazards: No Cognitive needs: No Hearing needs: No Vision needs: No Review of Systems ENT Reports neck pain Musc Reports back pain, Reports arthralgias, Denies joint swelling, Reports neck pain and Reports stiffness Physical Exam Vital Signs: Last Vital Signs Pulse 73 11/16/23 12:47 BP 122/74 11/16/23 12:47 Pulse Ox 99 11/16/23 12:47 Oxygen Delivery Method Room Air 11/16/23 12:47 BMI result Body Mass Index 29.3 Const General: cooperative, healthy appearing and comfortable Nutritional Appearance: overweight Orientation/consciousness: patient oriented x3 Limitations: no limitations HEENT Head: Yes normocephalic and Yes atraumatic Mouth: moist mucous membranes Resp Effort & Inspection: normal respiratory effort and able to speak in complete sentences Auscultation: clear to auscultation bilaterally Cardio Rate: regular rate Rhythm: regular rhythm Skin General skin exam: no rashes or lesions noted Neuro General: patient oriented x3 Extrem Other: No active synovitis noted both hands and wrists Normal range of motion of elbows and shoulders without pain Negative empty can test bilaterally Negative Speed's test bilaterally No nail pitting Normal nailfold capillaroscopy Abad test 10-15 cm Negative straight leg raise test bilaterally Negative Fabere test bilaterally No knee swelling or tenderness bilaterally No knee pain with flexion-extension bilaterally No ankle swelling or tenderness bilaterally No dactylitis both feet Assessment & Plan Assessment & Plan (1) Psoriatic arthritis: Code(s): L40.50 - Arthropathic psoriasis, unspecified Category: Medical Plan: This is a 42 year old male with psoriasis and psoriatic arthritis who presents for evaluation. It seems that patient gets flare-ups of psoriasis and psoriatic arthritis whenever he is not taking the Humira. Since he restarted the Humira early this year his flare-ups of psoriatic arthritis have resolved. I do not see any active synovitis on exam today. There is no active psoriasis. Upon evaluation I think patient has skeletal complaints are degenerative and mechanical in nature rather than inflammatory. I think the inflammatory component is adequately treated with Humira. No additional DMARDs are needed Advised patient that he can consider doing physical therapy for the involved areas such as the low back, neck, shoulders for rotator cuff tendinopathy. At this time no additional DMARDs are needed from Rheumatology standpoint Discussed symptoms and signs that are suggestive of active psoriatic arthritis. Patient to follow-up with me as needed (2) Psoriasis: Comment: started in his 20s. Managed by Dr. Eng MTX caused trasaminitis Humira since 2017 effective Code(s): L40.9 - Psoriasis, unspecified Category: Medical Plan I spent 45 minutes reviewing patient's chart, evaluating patient, counseling patient and documenting in the chart Coding Level of Care Code New Pt Level 4 (20030) Diagnoses Psoriatic arthritis L40.50 Psoriasis L40.9
[2023-11-16 12:47] VITALS: BP 122/74; PULSE 73; O2SAT 99; BMI 29.3
== END 2023-11-16 13:59 | disposition home or self-care (01) ==
PROVIDERS: PCP Internal Medicine; Visit Provider Student in an Organized Health Care Education/Training Program
DX: L40.50 Arthropathic psoriasis, unspecified (principal); L40.9 Psoriasis, unspecified
CPT/HCPCS: 99204

== ENCOUNTER → 2023-11-16 12:44 | Outpatient (BNVA) | payer OTHER, SELFPAY | PROVIDERS: PCP Internal Medicine; Visit Provider Student in an Organized Health Care Education/Training Program ==

== ENCOUNTER 2023-12-15 16:48 | Outpatient (AMB) | payer OTHER, SELFPAY ==
[2023-12-15 16:51] VITALS: BP 122/78; BMI 29.4
--- NOTE | 2023-12-15 16:51 | A.OFFPC_ITS ---
Vital Signs 12/15/23 16:51 Height 5 ft 10 in Weight 205 lb BMI 29.4 BP 122/78 Blood Pressure Location Lt brachial Position Sitting Intake Visit Reasons: 6mth f/u Experimental Psychologist Required: No Accompanied by: Marta Allergies No Known Allergies Allergy (Verified 12/15/23 16:58) Medication List - Last Reconciled 12/15/23 by Kyra Harvey MD adalimumab (Humira) 40 mg subcut Q2W Tobacco use date assessed: 06/14/23 Dental Screening Dental Screen Date: 12/15/23 Did you have a dental visit in the last 12 months?: Yes Did you have a dental problem in the last 6 months where you did not have access to dental care?: No Was dental information given to patient?: Patient has dentist HPI HPI Comments History of Present Illness Details This is a 43-year-old male with psoriatic arthritis, dyslipidemia and pulmonary nodules that comes accompanied by girlfriend for follow-up on his conditions. Psoriatic arthritis stable with Humira and follow by Rheumatology. Cholesterol was elevated the last time and this will be repeated in 6 months. He will do diet and exercise to try to lower the cholesterol. Has multiple small pulmonary nodules that looks benign and can friends seems to be worried about them. Will be referred to pulmonology for this matter. He was a smoker for over 20 years. Denies any chest pain or shortness on breath. 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 Selvin Lynn, Prema Ramirez, Sam Dunham and colleagues, with an educational danis from [employer]. Review of Systems Const All systems reviewed & are unremarkable except as noted in HPI and below Card Denies chest pain at rest, Denies chest pain with activity, Denies edema, Denies irregular heart rhythm, Denies claudication, Denies dyspnea, Denies dyspnea on exertion, Denies orthopnea, Denies paroxysmal nocturnal dyspnea and Denies slow heart rate Resp Denies cough, Denies dyspnea and Denies dyspnea on exertion GI Denies abdominal pain, Denies change in bowel habits, Denies excessive flatus, Denies nausea and Denies vomiting Denies urinary hesitancy, Denies urinary incontinence and Denies urinary urgency Musc Denies atrophy, Denies deformity and Denies limited range of motion Skin/Breast Denies bleeding lesions, Denies changing lesions and Denies rash Physical exam (Primary Care) Vital Signs: Last Vital Signs BP 122/78 12/15/23 16:51 BMI result Body Mass Index 29.4 Tobacco/Smoking Status: Tobacco use Status Tobacco use date assessed 06/14/23 12/15/23 16:53 Patient Tobacco Use Status Former Tobacco user 12/15/23 16:53 Tobacco use type Cigarette 12/15/23 16:53 e-Cigarette/Vaping Use Former Use 12/15/23 16:53 Thrive Assessment: Date of Thrive Assessment Date Thrive assessed 06/14/23 12/15/23 16:53 Resp Effort & Inspection: normal respiratory effort Auscultation: clear to auscultation bilaterally Cardio Jugular venous distension: no JVD Rate: regular rate Rhythm: regular rhythm Heart sounds: S1 normal heart sound present and S2 normal heart sound present Extrem General: Yes full ROM Assessment and Plan Assessment & Plan (1) Psoriatic arthritis: Code(s): L40.50 - Arthropathic psoriasis, unspecified Plan: Continue Humira. (2) Dyslipidemia: Comment: not requiring statins Code(s): E78.5 - Hyperlipidemia, unspecified Plan: Start low-cholesterol diet. Repeat lipid panel in 6 months (3) Pulmonary nodules: Code(s): R91.8 - Other nonspecific abnormal finding of lung field Plan: Referred to pulmonology. Orders: Orders Lipid Panel 6 Months E78.5 - Hyperlipidemia, unspecified Comprehensive [place]. Panel Fast 6 Months L40.9 - Psoriasis, unspecified Referrals Pulmonology Referral R91.8 - Other nonspecific abnormal finding of lung field Coding Level of Care Code Est Pt Level 3 (03904) Complex EM visit Add On G2211 Diagnoses Psoriatic arthritis L40.50 Dyslipidemia E78.5 Pulmonary nodules R91.8 Time Spent (min) 20
== END 2023-12-15 17:11 | disposition home or self-care (01) ==
PROVIDERS: PCP Internal Medicine; Visit Provider Internal Medicine
DX: L40.50 Arthropathic psoriasis, unspecified (principal); E78.5 Hyperlipidemia, unspecified; R91.8 Other nonspecific abnormal finding of lung field
CPT/HCPCS: 99213

== ENCOUNTER 2024-01-04 14:22 | Outpatient (AMB) | payer OTHER, SELFPAY ==
[2024-01-04 14:29] VITALS: BP 104/62; PULSE 70; O2SAT 99; BMI 30.5
--- NOTE | 2024-01-04 14:29 | MHC.OFFVIS ---
Vital Signs 01/04/24 14:29 Height 5 ft 10 in Weight 212 lb 4 oz BMI 30.5 BP 104/62 Blood Pressure Location Rt brachial Position Sitting Pulse 70 Pulse Source Pulse Oximeter Pulse Oximetry (%) 99 Oxygen Delivery Method Room Air Intake Visit Reasons: abnormal CT Allergies No Known Allergies Allergy (Verified 01/04/24 14:31) HPI HPI abnormal CT: Details: Praneeth is a pleasant 43-year-old male, former smoker quit 2 years ago with 15 with underlying asthma and psoriatic arthritis on Humira. He was referred by PCP for pulmonary evaluation. He initially presented to PCP with abdominal pain and was sent for an abdominal CT in August which revealed bilateral lower lobe pulmonary nodules. Subsequently was sent for a chest CT which revealed multiple pulmonary nodules (15+) less than 5 mm. He denies prior chest CT for comparison. He reports extensive occupational exposures working in [employer] for approximately 12 years. He is currently under the care of dermatology for psoriatic arthritis, has not had further workup to assess for any other underlying autoimmune conditions. He reports more noticeable dyspnea with moderate exertion, using levalbuterol with good effect. He previously trialed albuterol however could not tolerate due to tachycardia and tremors. He reports asthma was diagnosed as a child, requiring multiple intubations. He denies any seasonal allergies. He denies any pertinent family history. 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 [employer] Current occupational exposures/hazards: No Cognitive needs: No Hearing needs: No Vision needs: No Review of Systems Const Denies chills, Denies excessive sweating, Denies fever(s), Denies headache(s) and Denies night sweats Eyes Denies dry eyes, Denies irritation and Denies itchy eyes ENT Reports Normal hearing present, Denies headache(s), Denies nasal congestion, Denies nasal discharge, Denies post nasal drip and Denies sore throat Card Denies chest pain, Denies chest pain at rest, Denies chest pain with activity, Denies claudication, Denies leg edema, Denies orthopnea and Denies paroxysmal nocturnal dyspnea Resp Denies chest congestion, Denies cough, Denies excessive phlegm production, Denies pain on inspiration, Denies pain with cough, Denies stridor and Denies wheezing Musc Denies myalgias Neuro Reports Normal hearing present and Denies headache(s) Endo Denies excessive sweating Lyndon/Lymph Denies lymphadenopathy Aller/Immun Denies itchy eyes, Denies seasonal rhinorrhea and Denies wheezing Physical Exam Vital Signs: Last Vital Signs Pulse 70 01/04/24 14:29 BP 104/62 01/04/24 14:29 Pulse Ox 99 01/04/24 14:29 Oxygen Delivery Method Room Air 01/04/24 14:29 BMI result Body Mass Index 30.5 Const General: cooperative, healthy appearing, comfortable, no acute distress, well developed and alert Orientation/consciousness: patient oriented x3 Limitations: no limitations HEENT Head: Yes normal to inspection, Yes normocephalic and Yes atraumatic Ears: hearing grossly normal bilaterally and external ears normal Eyes General: appearance normal, both eyes and all related structures Eyelids: Yes eyelids normal Sclerae: sclerae normal EOM: EOMs intact bilaterally Neck Neck: Yes normal visual inspection and Yes no lymphadenopathy Lymphatic: no lymphadenopathy noted Chest Chest palpation & inspection: normal inspection of the chest Resp Effort & Inspection: normal respiratory effort, able to speak in complete sentences, no audible wheezes, no cough, no stridor, not tachypneic, no tripod positioning and no use of accessory muscles Auscultation: clear to auscultation bilaterally Cardio Jugular venous distension: no JVD Rate: regular rate Rhythm: regular rhythm Skin Other: warm, dry General skin exam: no rashes or lesions noted Neuro General: patient oriented x3 Cranial nerves: Yes Normal hearing present Cognition (Neuro): normal cognition Gait exam (Neuro): Normal gait present Extrem General: Yes normal to inspection, Yes capillary refill normal, Yes no clubbing, cyanosis or edema and Yes no pedal edema Psych Appearance: grossly normal and well kempt Speech and movement: Normal speech and movement present and Clear speech present Affect: normal affect Attitude: cooperative Thought process: Normal thought process present Thought content: Normal thought content present Insight: Good insight present (Psych) Judgement: Good judgement present (Psych) Results Reviewed Results Reviewed: [address] [address] [address] Scan Report Signed Patient: Praneeth Saldana MR#: [id number] : 1980 Acct:[id number] Age/Sex: 42 / M ADM Date: 10/26/23 Loc: HO.CT Attending Dr: Kyra Harvey MD Ordering Physician: Kyra Sepulveda MD Date of Service: 10/26/23 Procedure(s): CT chest wo con - High Res Accession Number(s): [id number] cc: Kyra Sepulveda MD~ EXAMINATION: CT CHEST WITHOUT CONTRAST CLINICAL INFORMATION: Pulmonary nodules; other nonspecific abnormal finding lung field. COMPARISON: No prior chest CT. Correlation made with CT abdomen and pelvis 08/24/2023. TECHNIQUE: Multidetector volumetric CT imaging of the chest was obtained after without intravenous contrast. Axial MIP volume rendering provided. Sagittal and coronal reformatted images were obtained. This CT examination was performed using dose optimization techniques as appropriate, variously including the following: *Automated exposure control *Adjustment of mA and/or kV according to patient size (this includes techniques or standardized protocols for targeted exams where dose is matched to indication/reason for exam; i.e. extremities or head) *Use of iterative reconstruction technique DLP: 175 mGy-cm Please note, due to [facility] contractual, systems, and staffing issues, an [facility] [place] was not available for review and dictation of this case until 12/08/2023. FINDINGS: PULMONARY NODULES: -There are two adjacent 3 mm calcified granuloma in the lateral right upper lobe (series 11, image 64). These are benign. -3 mm nodule anterolateral right upper lobe (series 11, image 74). -Average diameter of 5 mm linear nodule within the mid major fissure (series 11, image 97), most consistent with intrapulmonary lymph node. -3 mm nodule superior segment right lower lobe anteriorly, just posterior to the major fissure (series 11, image 103). -4 mm nodule superior segment right lower lobe laterally (series 11, and 118). -4 mm nodule lateral superior segment right lower lobe (series 11, image 140). This is stable and benign. -3 mm left upper lobe nodule anteriorly (series 11, image 49). -3 mm nodule anterior left lower lobe just posterior to the major fissure (series 11, image 158). This is stable. -Average diameter 4 mm nodule within the major fissure inferiorly (series 11, image 143), stable and consistent with intrapulmonary lymph node. -5 mm triangular nodule with pleural tag in the lingular segment medially (series 11, image 99), consistent with intrapulmonary lymph node. -Likely calcified 4 mm nodule posterior left lower lobe (series 11, image 139), stable. This is benign. -A few additional 2 to 3 mm nodules in the left lung are present. LUNGS: -The lungs are clear bilaterally. There is no evidence of interstitial lung disease. -Small airways are normal. No bronchiectasis or wall thickening. No endobronchial filling defects. -There are no consolidations or abnormal groundglass opacities. There is no emphysema. -The trachea and central airways are normal. PLEURA: There is no pleural effusion. No pleural mass or thickening. MEDIASTINUM: -Normal thyroid. -There are scattered borderline enlarged lymph nodes in the mediastinum including the pretracheal and prevascular region, largest measuring 8 mm short axis prevascular. These are statistically benign and reactive. They maintain normal morphology and fatty arianne. -Aorta is normal in caliber and course with no calcifications. There is no aneurysm. -Main pulmonary artery is normal. -Heart size is normal. No pericardial effusion. -Esophagus is normal. -Minimal LAD coronary calcifications. AXILLA/CHEST WALL: There is mild bilateral male gynecomastia right greater than left. There are no masses or abnormal lymph nodes. UPPER ABDOMEN: No abnormalities. OSSEOUS STRUCTURES: Unremarkable. CT/CT chest wo con - High Res IMPRESSION: 1. Scattered pulmonary nodules as detailed, largest 5 mm in the lingular segment with morphology suggestive of intrapulmonary lymph node. Nodules seen on previous CT abdomen and pelvis are unchanged. All these nodules have chance of malignancy less than 1%, and in a high-risk patient, a 1-year follow-up CT could be considered. 2. There is no evidence of interstitial lung disease. The lungs are clear with no active disease. 3. Mild bilateral male gynecomastia. 4. Scattered mediastinal lymph nodes are within normal size limits and likely reactive in etiology. No definite pathologic adenopathy. 5. Additional ancillary findings as discussed in the body of the report. Fleischner guidelines were followed. Electronically signed by: Govind Hernandez MD 12/08/2023 09:21 AM EDT Dictated By: Govind Hernandez MD Signed By: <Electronically signed by Govind Hernandez MD in OV> 12/08/23920 DD/ 165 TD/TT: 10/26/23 1705 [place] Sorter: Assessment & Plan Assessment & Plan (1) Pulmonary nodules: Code(s): R91.8 - Other nonspecific abnormal finding of lung field Category: Medical (2) Asthma: Code(s): J45.909 - Unspecified asthma, uncomplicated Category: Medical (3) Dyspnea on exertion: Code(s): R06.09 - Other forms of dyspnea Category: Medical Plan Praneeth presents for pulmonary evaluation after recent abnormal chest CT revealing multiple pulmonary nodules, greatest 5 mm. Will send for repeat chest CT in 6 months to assess for stability. 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 Will send for ESR and ANCA, as multiple pulmonary nodules could be suggestive of Letitia's. Patient also reports more noticeable dyspnea on exertion, and prior history of asthma, will send for PFT. Will also refill levalbuterol, as he can not tolerate albuterol. He is aware if he uses frequently will switch to daily ICS. All questions were answered and patient is in agreement of plan will follow-up to review results or sooner if needed. Orders: Orders CT chest wo IV con 2 Months R91.8 - Other nonspecific abnormal finding of lung field Erythrocyte Sedimentation Rate Today R06.09 - Other forms of dyspnea, R91.8 - Other nonspecific abnormal finding of lung field PFT pulmonary function test 01/04/24 J45.909 - Unspecified asthma, uncomplicated, R06.09 - Other forms of dyspnea ANCA Vasculitides Today R06.09 - Other forms of dyspnea, R91.8 - Other nonspecific abnormal finding of lung field Medications: New levalbuterol tartrate 45 mcg/actuation 1 puff inhalation Q4-6H PRN 15 grams 3RF shortness of breath Coding Level of Care Code New Pt Level 4 (24271) Diagnoses Pulmonary nodules R91.8 Asthma J45.909 Dyspnea on exertion R06.09
== END 2024-01-04 15:18 | disposition home or self-care (01) ==
PROVIDERS: PCP Internal Medicine; Visit Provider Nurse Practitioner Family
DX: R91.8 Other nonspecific abnormal finding of lung field (principal); J45.909 Unspecified asthma, uncomplicated; R06.09 Other forms of dyspnea
CPT/HCPCS: 99204

== ENCOUNTER → 2024-01-04 14:22 | Outpatient (BNVA) | payer OTHER, SELFPAY | PROVIDERS: PCP Internal Medicine; Visit Provider Nurse Practitioner Family ==

== ENCOUNTER 2024-02-07 07:51 | Outpatient (REF) | payer OTHER, SELFPAY ==
--- NOTE | 2024-02-07 08:38 | PFT_ITS ---
Flows: FEV1: 116 % of predicted at 4.75 L FVC: 122 % of predicted at 6.26 L FEV1/FVC: 76 % Bronchodilator response: Present in small to medium airways only Volumes: Total lung capacity: 111 % of predicted at 7.98 L Residual volume: 94 % of predicted at 1.59 L Slow vital capacity: 116 % of predicted at 6.38 L Expiratory reserve volume: 189 % of predicted at 2.90 L Diffusion capacity: Normal Impression: No obstructive or restrictive ventilatory defect. Bronchodilator response present in small to medium airways only. MTDD
[2024-02-07 08:49] VITALS: PULSE 82; RESP 16; O2SAT 100
== END 2024-02-07 07:52 | disposition home or self-care (01) ==
LOC: HO.RESP 07:51
PROVIDERS: PCP Internal Medicine; Visit Provider Nurse Practitioner Family
DX: R06.09 Other forms of dyspnea (principal); J45.909 Unspecified asthma, uncomplicated
CPT/HCPCS: 94010; 94640; 94727; 94729

== ENCOUNTER 2024-03-02 07:57 | Outpatient (REF) | payer OTHER, SELFPAY | END 2024-03-02 07:58 | disposition home or self-care (01) | LOC: HO.CT 07:57 | PROVIDERS: PCP Internal Medicine; Visit Provider Nurse Practitioner Family | DX: R91.8 Other nonspecific abnormal finding of lung field (principal) | CPT/HCPCS: 71250 ==

== ENCOUNTER 2024-06-12 06:14 | Outpatient (REF) | payer OTHER, SELFPAY ==
[2024-06-12 06:35] LABS: MANUAL DIFF FLAG NO
[2024-06-12 07:21] LABS: Basophils Percent Auto 0.5 % (0-2); Eosinophils Absolute Auto 0.2 X10*3/uL (0.0-0.4); Eosinophils Percent Auto 2.6 % (0-4); Hemoglobin 16.2 g/dl (14.0-18.0); Imm Gran Abs Auto 0.03 X10*3/uL (0.00-0.03); Imm Gran Pct Auto 0.4 % (0.0-0.4); Lymphocytes Absolute Auto 2.8 X10*3/uL (1.2-4.9); Lymphocytes Percent Auto 36.7 % (20-40); Mean Corpuscular HGB Conc 34.5 g/dl (31.0-36.0); Mean Corpuscular Hemoglobin 30.2 pg (27.0-33.0); Mean Corpuscular Volume 87.7 fL (80.0-98.0); Mean Platelet Volume 10.3 fL (9.4-12.4); Monocytes Absolute Auto 0.8 X10*3/uL (0.1-1.2); Monocytes Percent Auto 10.5 % (2-11); Neutrophils Absolute Auto 3.8 x10*3/uL (2.0-8.3); Neutrophils Percent Auto 49.3 % (45-73); Platelet Count 227 X10*3/uL (160-400); Red Blood Count 5.36 X10*6/uL (4.60-5.80); Red Cell Distribution Width 12.4 % (11.0-16.0); White Blood Count 7.7 X10*3/uL (4.8-10.8)
[2024-06-12 07:49] LABS: Alanine Aminotransferase 40 U/L (0-40); Albumin Level 4.5 g/dL (3.5-5.0); Alkaline Phosphatase 57 U/L (39-117); Anion Gap 12 (12-20); Aspartate Amino Transferase 24 U/L (5-37); Bilirubin Direct 0.2 mg/dL (0.0-0.5); Bilirubin Total 0.6 mg/dL (0.0-1.0); Blood Urea Nitrogen 20 mg/dL (9-16); Calcium 9.5 mg/dL (8.4-10.2); Carbon Dioxide 26 mmol/L (22-29); Chloride 107 mmol/L (96-108); Cholesterol 216 mg/dL (<200); Estimated Glomerular Filt Rate > 60; Glucose Fasting 95 mg/dL (60-99); Glucose Random 95 mg/dL (60-115); HDL Cholesterol 63 mg/dL (>40); LDL Cholesterol Calculated 130 mg/dL (<100); Potassium 4.6 mmol/L (3.3-5.1); Sodium 140 mmol/L (135-145); Total Protein 7.5 g/dL (6.5-8.0); Triglycerides 118 mg/dL (<150)
[2024-06-15 17:14] LABS: TS Negative Control Passed; TS Panel A 0; TS Panel B 0; TS Positive Control Passed; TSpotTB Negative (Negative)
== END 2024-06-12 06:15 | disposition home or self-care (01) ==
LOC: HO.LAB 06:14
PROVIDERS: Absent Provider Physician Assistant Medical; PCP Internal Medicine; Visit Provider Internal Medicine
DX: L40.0 Psoriasis vulgaris (principal)
CPT/HCPCS: 36415; 80048; 80053; 80061; 80076; 82248; 85025; 86481

== ENCOUNTER 2024-06-14 16:03 | Outpatient (AMB) | payer OTHER, SELFPAY ==
--- NOTE | 2024-06-14 16:22 | A.OFFPC_ITS ---
Vital Signs 06/14/24 16:23 Height 5 ft 10 in Weight 218 lb BMI 31.3 BP 120/82 Blood Pressure Location Lt brachial Position Sitting Intake Visit Reasons: PE Intake Note: Patient here for a physical exam Floor Winder Required: No Accompanied by: Spouse Allergies No Known Allergies Allergy (Verified 06/14/24 16:39) Medication List - Last Reconciled 06/14/24 by Kyra Harvey MD adalimumab (Humira) 40 mg subcut Q2W levalbuterol tartrate 45 mcg/actuation 1 puff inhalation Q4-6H PRN Tobacco use date assessed: 06/14/24 Dental Screening Dental Screen Date: 06/14/24 Did you have a dental visit in the last 12 months?: Yes Did you have a dental problem in the last 6 months where you did not have access to dental care?: No Was dental information given to patient?: Patient has dentist HPI HPI Comments History of Present Illness Details The patient is a 43-year-old male presenting for a wellness exam and evaluation of bilateral pulmonary nodules. Bilateral pulmonary nodules were previously assessed by a CT scan on March 02, showing no significant changes or enlargement. Stability in these nodules suggests no immediate concern. His management includes psoriatic arthritis for which he uses Humira and an inhaler for respiratory considerations, without a surgical history. The patient's familial medical background includes maternal history of breast cancer and sepsis due to cellulitis, with his father having diabetes. Blood tests conducted on June 12 surprising a normal range of hematological parameters but indicated hypercholesterolemia, currently on a downward trend. His cardiovascular risk assessed with the [place] score denotes a 2.1% risk over the next decade, mitigating the need for medications presently. Evaluating thyroid function with TSH results within normal ranges suggests no immediate i ntervention required. The patient does not consume alcohol, ceased smoking years ago, and is asymptomatic for depression and anxiety. However, there are ongoing shoulder issues exhibiting increasing discomfort and restricted movement, without previous investigation or treatment. - Tetanus vaccine discussion: Offered bu t declined during visit - [place] Risk Score: Patient's risk - 2.1% over the next 10 years - Hypercholesterolemia: Monitored throug h lifestyle modifications, medication not initiated - Colon cancer screening: Scheduled for consideration next year when patient reaches age 44 [facility] Medical History (Updated 06/15/24 @ 10:46 by Kyra Harvey MD) Psoriasis Syncope Encounter for physical examination Dyslipidemia Psoriatic arthritis History of substance abuse Alcohol abuse Depression with anxiety Obese Surgical History No pertinent past surgical history Family History (Updated 06/14/24 @ 16:46 by Kyra Harvey MD) Mother Breast cancer Sepsis Father Diabetes Social History Housing: Apartment Alcohol intake: never Patient Tobacco Use Status: Former Tobacco user Tobacco use type: Cigarette e-Cigarette/Vaping Use: Former Use Second Hand Smoke Exposure: No service: No Current occupational status: employed Current occupation: [employer] Current occupational exposures/hazards: No Cognitive needs: No Hearing needs: No Vision needs: No Questionnaire PHQ-9 Over the last 2 weeks, how often have you been bothered by any of the following problems? 1. Little interest or pleasure in doing things: not at all 2. Feeling down, depressed, or hopeless: not at all 3. Trouble falling or staying asleep, or sleeping too much: not at all 4. Feeling tired or having little energy: not at all 5. Poor appetite or overeating: not at all 6. Feeling bad about yourself - or that you are a failure or have let yourself or your family down: not at all 7. Trouble concentrating on things, such as reading the newspaper or watching television: several days 8. Moving or speaking so slowly that other people could have noticed. Or the opposite - being so fidgety or restless that you have been moving around a lot more than usual: not at all 9. Thoughts that you would be better off or of hurting yourself in some way: not at all Total score: 1 Depression Screening Interpretation: Negative Depression Screening Done: Yes 62523 - PHQ-9 Billing: Yes Source: Developed by Drs. Selvni Lynn, Prema Ramirez, Sam Dunham and colleagues, with an educational danis from [employer]. Thrive Questionnaire Date Thrive assessed: 06/14/24 I am a: Patient What is your living situation today?: I have a steady place to live Within the past 12 months, did the food you bought not last and you didn't have the money to get more?: Never true Within the past 12 months, did you worry whether your food would run out before you got money to buy more?: Never true Do you have trouble paying for medicines?: No Do you have trouble getting transportation to medical appointments?: No Do you have trouble paying your heating and electricity bill?: No Do you have trouble taking care of your child, family member or friend?: No Do you have trouble with day-to-day activities such as bathing, preparing meals, shopping, managing finances, etc.?: No Are you currently unemployed and looking for a job?: No Are you interested in more education?: No Please select the resources that you would like help with: None Currently or been in a relationship where the following occur: No concerns reported THRIVE Score: 0 AUDIT C Alcohol Use Questionnaire (AUDIT-C) 1. How often do you have a drink containing alcohol?: Never Total Score: 0 Score Reviewed/Action Taken: No GREGORY-7 AMB Questionnaire GREGORY-7 Date GREGORY - 7 assessed: 06/14/24 Feeling nervous, anxious, or on edge: 0 = Not at all Not being able to stop or control worryin = Not at all Worrying too much about different things: 0 = Not at all Trouble relaxin = Not at all Being so restless that it is hard to sit still: 0 = Not at all Becoming easily annoyed or irritable: 0 = Not at all Feeling afraid as if something awful might happen: 0 = Not at all Total GREGORY-7 score (0-4 normal; 5-9 mild; 10-14 moderate; 15-21 severe): 0 Source: Developed by Drs. Selvin Lynn, Prema Ramirez, Sam Dunham and colleagues, with an educational danis from [employer]. GREGORY-7 Assessment Billing GREGORY-7 Assessment Tool: GREGORY-7 Assessment 10579 Review of Systems Const All systems reviewed & are unremarkable except as noted in HPI and below Card Denies chest pain at rest, Denies chest pain with activity, Denies edema, Denies irregular heart rhythm, Denies claudication, Denies dyspnea, Denies dyspnea on exertion, Denies orthopnea, Denies paroxysmal nocturnal dyspnea and Denies slow heart rate Resp Denies cough, Denies dyspnea and Denies dyspnea on exertion GI Denies abdominal pain, Denies change in bowel habits, Denies excessive flatus, Denies nausea and Denies vomiting Musc Reports arthralgias Physical exam (Primary Care) Vital Signs: Last Vital Signs BP 120/82 06/14/24 16:23 BMI result Body Mass Index 31.3 BMI Assessment/Plan discussion: High BMI High, discussed plan: lifestyle, weight reduction, dietary and physical activity Tobacco/Smoking Status: Tobacco use Status Tobacco use date assessed 06/14/24 06/14/24 16:28 Patient Tobacco Use Status Former Tobacco user 06/14/24 16:28 Tobacco use type Cigarette 06/14/24 16:28 e-Cigarette/Vaping Use Former Use 06/14/24 16:28 PHQ-9: PHQ-9 Score PHQ-9: Total score 1 06/14/24 16:42 Depression Screening Interpretation: Negative Thrive Assessment: Date of Thrive Assessment Date Thrive assessed 06/14/24 06/14/24 16:28 Currently or been in a relationship where the following occur: No concerns reported [facility] Head: Yes normal to inspection, Yes normocephalic and Yes atraumatic Ears: external ears normal Eyes General: appearance normal, both eyes and all related structures Eyelids: Yes eyelids normal Conjunctivae: conjunctivae normal Neck Neck: Yes normal visual inspection and Yes supple Resp Effort & Inspection: normal respiratory effort Auscultation: clear to auscultation bilaterally Cardio Jugular venous distension: no JVD Rate: regular rate Rhythm: regular rhythm Heart sounds: S1 normal heart sound present and S2 normal heart sound present GI Inspection: Yes normal to inspection Palpation (GI): Soft to palpation and nontender Auscultation: normal bowel sounds Skin General skin exam: no rashes or lesions noted Neuro General: no focal motor deficits Extrem General: Yes full ROM Psych Appearance: grossly normal Coding Level of Care Code Est Pt Level 3 (98362) Est Pt Prev Care 40-64y(24104) Diagnoses Encounter for physical examination Z00.00 Psoriatic arthritis L40.50 Chronic right shoulder pain M25.511; G89.29 Chronicity: chronic Additional Codes GREGORY-7 Assessment Billing - GREGORY-7 Assessment Tool: GREGORY-7 Assessment 22242 ([id number]) PHQ-9 - 54670 - PHQ-9 Billing: Yes ([id number]) Time Spent (min) 33 Assessment & Plan Assessment & Plan (1) Encounter for physical examination: Code(s): Z00.00 - Encounter for general adult medical examination without abnormal findings Category: Medical (2) Psoriatic arthritis: Code(s): L40.50 - Arthropathic psoriasis, unspecified Category: Medical (3) Right shoulder pain: Code(s): M25.511 - Pain in right shoulder Category: Medical Qualifiers: Chronicity: chronic Qualified Code(s): M25.511 - Pain in right shoulder; G89.29 - Other chronic pain Plan Today's wellness examination focused on evaluating the patient's chronic conditions and ensuring adequate monitoring of identified health risks. The bilateral pulmonary nodules are stable, justifying a [id number] approach with infrequent imaging. Hypercholesterolemia, although noted, is mitigated through recommended lifestyle changes given the calculated cardiovascular risk score. Psoriatic arthritis continues with Humira, maintaining control. Concerns about the thyroid function are to be further explored, albeit without current clinical indication for intervention. The musculoskeletal symptoms related to the shoulder have initiated diagnostic and referral action for definitive assessment and management. Today's consult helped outline appropriate, evidence-based interventions offering reassurance and continuity in care management. Patient was informed and verbally consented to the use of an ambient scribe for clinic note documentation during this visit. During today's consultation, I discussed with the patient the stable condition of the bilateral pulmonary nodules, advising ongoing surveillance without immediate intervention. The hypercholesterolemia was addressed with lifestyle advice, and reassurance provided from the [place] Risk assessment indicating a low risk over ten years. Concerning the thyroid, although levels are slightly elevated, they remain within the normal range, opting for further assessment based on patient preference rather than medical necessity. The shoulder pain and mechanical symptoms were deliberated, resulting in plans for an x-ray and referrals to physical therapy and orthopaedic specialists. These steps aim to address musculoskeletal concerns comprehensively and expediently. Orders: Orders XR shoulder RT min 2V 06/14/24 M25.511 - Pain in right shoulder Thyroid Stimulating Hormone 06/14/24 E66.09 - Other obesity due to excess calories, Z68.33 - Body mass index [BMI] 33.0-33.9, adult PT Evaluation and Treatment 06/14/24 M25.511 - Pain in right shoulder Referrals Orthopedics Referral M25.511 - Pain in right shoulder Patient Instructions: - Monitor weight and focus on healthy dietary habits - Be attentive to any new or worsening pulmonary symptoms - Continue psoriatic arthritis management with Humira - Attend arranged appointments for x-ray, physical therapy, and orthopaedic assessment - Report any concerns or changes in symptoms to me for timely follow-up
[2024-06-14 16:23] VITALS: BP 120/82; BMI 31.3
== END 2024-06-14 16:58 | disposition home or self-care (01) ==
LOC: HO.HMCH 16:04
PROVIDERS: PCP Internal Medicine; Visit Provider Internal Medicine
DX: Z00.00 Encounter for general adult medical examination without abnormal findings (principal); L40.50 Arthropathic psoriasis, unspecified; M25.511 Pain in right shoulder; G89.29 Other chronic pain

== ENCOUNTER → 2024-06-14 16:03 | Outpatient (BNVA) | payer OTHER, SELFPAY | PROVIDERS: PCP Internal Medicine; Visit Provider Internal Medicine | DX: Z00.00 Encounter for general adult medical examination without abnormal findings (principal); R91.8 Other nonspecific abnormal finding of lung field; L40.50 Arthropathic psoriasis, unspecified; M25.511 Pain in right shoulder; G89.29 Other chronic pain | CPT/HCPCS: 96127 ==

== ENCOUNTER 2024-08-13 11:27 | Outpatient (REF) | payer OTHER, SELFPAY ==
--- NOTE | ~2024-08-13 | XR_ITS ---
EXAMINATION: XR SHOULDER, RIGHT CLINICAL INFORMATION: M25.511 - Pain in right shoulder COMPARISON: May 18, 2017. TECHNIQUE: AP external rotation, Grashey, scapular Y, and axillary views of the right shoulder. FINDINGS: Mild sclerosis in the greater tuberosity of the humerus. No acute cortical disruption or malalignment. No lytic or blastic lesions. No metallic or radiopaque foreign body. XR/XR shoulder RT min 2V IMPRESSION: Mild degenerative changes. Electronically signed by: Subhash Vieira MD 08/13/2024 03:05 PM EDT
== END 2024-08-13 11:28 | disposition home or self-care (01) ==
LOC: HO.HOSX 11:27
PROVIDERS: Visit Provider Physician Assistant
DX: M75.81 Other shoulder lesions, right shoulder (principal); M25.511 Pain in right shoulder
CPT/HCPCS: 20610; 73030; J1010; J2003

== ENCOUNTER 2024-08-13 14:37 | Outpatient (AMB) | payer OTHER, SELFPAY ==
--- NOTE | 2024-08-13 14:56 | MHC.OFFVIS ---
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 Patient was seen by his PCP on 06/14/24, he was referred to orthopedics and physical therapy. Patient reports his pain has been present for 6 months that has been increasing getting worse. He is unaware of any injury. Limited ROM. He currently attends PT, that has not helping. Finds little relief with ibuprofen. 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 He has been working with physical therapy for the past 3weeks with some noticeable benefits however he continues to have discomfort with reaching overhead and sleeping at night. He does take occasional ibuprofen which does help at night. He does notice when he is using his workstation there is some discomfort in the shoulder using a mouse. [facility] Medical History Psoriasis Syncope Encounter for physical examination Dyslipidemia Psoriatic arthritis History of substance abuse Alcohol abuse Depression with anxiety Obese Surgical History No pertinent past surgical history Family History (Updated 06/14/24 @ 16:46 by Kyra Harvey MD) Mother Breast cancer Sepsis Father Diabetes Social History Housing: Apartment Alcohol intake: never Patient Tobacco Use Status: Former Tobacco user Tobacco use type: Cigarette e-Cigarette/Vaping Use: Former Use Second Hand Smoke Exposure: No service: No Current occupational status: employed 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 [email or web address] Current occupational exposures/hazards: No Cognitive needs: No Hearing needs: No Vision needs: No Review of Systems Const All systems reviewed & are unremarkable except as noted in HPI and below Physical Exam Vital Signs: BMI result Body Mass Index 31.3 Const General: cooperative and no acute distress Orientation/consciousness: patient oriented x3 Resp Effort & Inspection: normal respiratory effort and able to speak in complete sentences Cardio Peripheral pulses: Peripheral pulses 2+ throughout Neuro General: patient oriented x3 Extrem Other: Right shoulder normal to inspection. He has full range of motion in all planes with discomfort in forward flexion. He does have some discomfort with rotator cuff strength testing however there is no weakness. Mild discomfort with Hernandez. Office Procedures AMB Joint Injection/Aspiration Joint Injection/Aspiration Primary Site: right shoulder Prep: site was prepped using aseptic technique, ethochloride spray was applied and injection warnings given Injected: 80 mg of, DepoMedrol, with 8 mL of, 1% plain lidocaine and in the subcromial space Approach Used: posterolateral Procedure: The patient tolerated the procedure well and there was some relief with the local anesthesia Coding 84371 - Glenohumeral/Tronchanteric Bursa/Intraarticular Procedure code (CPT) selection complete Results Reviewed Results Reviewed: X-rays of the right shoulder obtained in the office today are significant for type 2 acromion with sclerotic changes. Assessment & Plan Assessment & Plan (1) Tendinitis of right rotator cuff: Code(s): M75.81 - Other shoulder lesions, right shoulder Category: Medical Plan: We discussed options today which included continued physical therapy which I do think we will help him overall with his strength and scapular stabilization. I did recommend he use the ibuprofen 800 mg 3 times a day for the next 2 weeks to help with flare-ups and to bring him back down to baseline. We also discussed the benefits of a steroid injection which she did elect to proceed with today and he tolerated well. He will continue with physical therapy and if symptoms persist or worsen he will contact our office and we can discuss proceeding with MRI imaging otherwise he will follow up as needed. Orders: Orders XR shoulder RT min 2V Today M25.511 - Pain in right shoulder Medications: New ibuprofen 800 mg PO Q8H PRN 90 tabs 3RF pain 30 days S52.209D - Unspecified fracture of shaft of unspecified ulna, subsequent encounter for closed fracture with routine healing Coding Level of Care Code New Pt Level 3 (35680) Complex EM visit Add On G2211 Diagnoses Tendinitis of right rotator cuff M75.81 CPT Codes Coding - Joint 7: 99615 - Glenohumeral/Tronchanteric Bursa/Intraarticular ([id number])
[2024-08-13 15:02] VITALS: BMI 31.3
== END 2024-08-13 16:05 | disposition home or self-care (01) ==
LOC: HO.HOS 14:38
PROVIDERS: PCP Internal Medicine; Visit Provider Physician Assistant
DX: M75.81 Other shoulder lesions, right shoulder (principal)
CPT/HCPCS: 20610; 99203

== ENCOUNTER → 2024-08-13 14:41 | Outpatient (BNV) | payer OTHER, SELFPAY | PROVIDERS: Visit Provider Radiology Diagnostic Radiology | DX: M25.511 Pain in right shoulder (principal) | CPT/HCPCS: 73030 ==

== ENCOUNTER 2024-08-24 06:51 | Outpatient (RCR) | payer OTHER, SELFPAY ==
--- NOTE | 2024-07-13 09:38 | MHC.PT.EP ---
[facility] [place] [facility] [place] [facility] [place] [facility] [address] Lauren Avery [address] [phone] F: [phone] F: [phone] F: [phone] F: [phone] Physical Therapy Plan of Care Date of Evaluation: 07/13/24 Date of Surgery: Diagnosis: R shoulder pain Assessment: 43 y/o L-hand dominant male referred to PT with R shoulder pain. Reports pain and difficulty with dressing, reaching overhead, sleeping (likes to sleep with hands behind head), guitar/mandolin playing, reaching behind back, and lifting. Examination shows decreased R shoulder AROM and mildly limited PROM with end-range pain, clicking with external rotation, decreased R shoulder strength, pain and impaired postural awareness. S/s consistent with R shoulder impingement with labral involvement (?supraspinatus tendinopathy). Recommend PT 2x/week for 6 weeks to address impairments, implement HEP, and optimize functional mobility. 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 Manual therapy to restore motion and function. Therapeutic exercise to improve strength and flexibility. Neuromuscular re-education for posture and balance. Therapeutic activities to return to functional activities of daily living. Electronically signed by: Christina Alarcon PT Please sign and return to therapist. Thank you for your referral.
--- NOTE | 2024-10-01 07:40 | MHC.PT.DC ---
[facility] [place] [facility] [place] [facility] [place] [facility] [address] Lauren Avery [address] [phone] F: [phone] F: [phone] F: [phone] F: [phone] Physical Therapy Discharge Report Diagnosis: R shoulder pain Date of Surgery: Date of Evaluation: 07/13/24 Date of Discharge: 10/01/24 Treatments to Date: 8 Cancellations to Date: 5 No Shows to Date: 0 Discharge Status: Improved Function Independent with HEP Discharge Summary: Pt initially with minimal progress however last 2-3 visits, pt with improved shoulder ROM, decreased pain, and improved function. He did not f/u with further visits and at this time is d/c to I HEP Electronically signed by: Christina Alarcon PT Please sign and return to therapist. Thank you for your referral.
== END 2024-10-01 07:41 | disposition home or self-care (01) ==
LOC: HO.PT 06:51
PROVIDERS: PCP Internal Medicine; Visit Provider Internal Medicine
DX: M25.511 Pain in right shoulder (principal)
CPT/HCPCS: 97110; 97112; 97140; 97162

== ENCOUNTER 2025-02-08 12:38 | Outpatient (REF) | payer OTHER, SELFPAY ==
--- NOTE | ~2025-02-08 | CT_ITS ---
EXAMINATION: CT CHEST WITHOUT IV CONTRAST INDICATION: R91.8 - Other nonspecific abnormal finding of lung field COMPARISON: Comparison is made with the prior examination dated 03/02/2024. TECHNIQUE: Helical CT scan of the chest was performed without intravenous contrast. Coronal and sagittal reformatted images were generated and reviewed. This CT exam was performed with one or more of the following dose reduction techniques: automated exposure control, adjustment of the mA and/or kV according to patient size, use of iterative reconstruction technique. DLP: 206 mGy-cm CHEST: THYROID: The thyroid is unremarkable. LUNGS: Again seen are scattered bilateral pulmonary nodules measuring up to 4 mm in size in the right upper lobe (series 4, image 63), in the right lower lobe (series 4, images 76 and 92), in the left upper lobe (series 4, images 48, 53, 61, and 85), and in the left lower lobe (series 4, images 96, 110, and 123). Nearly all are smaller than on the prior study. No new or enlarging nodules are seen. MEDIASTINUM: There are multiple paratracheal and AP window lymph nodes measuring up to 10 mm in short axis dimension. TISH: Evaluation of the hilar regions is limited by lack of intravenous contrast material. CARDIOVASCULATURE: The heart is normal in size. There is no pericardial effusion. The thoracic aorta is normal in caliber. DEGREE OF CORONARY CALCIFICATION: none PLEURA: There is no pleural effusion. No pneumothorax. MAIN AIRWAYS: The mainstem bronchi and proximal branches are patent. AXILLA: There is no axillary lymphadenopathy. BONES AND SOFT TISSUES: There is mild bilateral gynecomastia, right greater than left. The bones are intact. UPPER ABDOMEN: The visualized portions of the liver, spleen, and adrenals have an unremarkable unenhanced appearance. CT/CT chest wo IV con IMPRESSION: Scattered bilateral pulmonary nodules, the majority of which are smaller than on the prior study. Electronically signed by: Selvin Seo MD 02/08/2025 01:42 PM EST
== END 2025-02-08 12:39 | disposition home or self-care (01) ==
LOC: HO.CT 12:38
PROVIDERS: PCP Internal Medicine; Visit Provider Nurse Practitioner Family
DX: R91.8 Other nonspecific abnormal finding of lung field (principal)
CPT/HCPCS: 71250

== ENCOUNTER → 2025-02-08 12:40 | Outpatient (BNV) | payer OTHER, SELFPAY | PROVIDERS: PCP Internal Medicine; Visit Provider Radiology Diagnostic Radiology | DX: R91.8 Other nonspecific abnormal finding of lung field (principal) | CPT/HCPCS: 71250 ==

== ENCOUNTER 2025-03-15 16:07 | Outpatient (AMB) | payer OTHER, SELFPAY ==
[2025-03-15 16:09] VITALS: BP 130/70; PULSE 82; RESP 18; O2SAT 97; BMI 34.5
--- NOTE | 2025-03-15 16:09 | A.OFFPC_ITS ---
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 Accompanied by: Self / Same As Patient Allergies No Known Allergies Allergy (Verified 03/15/25 16:50) Medication List - Last Reconciled 03/15/25 by NEIL Lazo adalimumab (Humira) 40 mg subcut Q2W ibuprofen 800 mg PO Q8H PRN 30 days levalbuterol tartrate 45 mcg/actuation 1 puff inhalation Q4-6H PRN Tobacco use date assessed: 03/15/25 Dental Screening Dental Screen Date: 03/15/25 Did you have a dental visit in the last 12 months?: Yes Did you have a dental problem in the last 6 months where you did not have access to dental care?: No Was dental information given to patient?: Patient has dentist HPI Depression HPI Details Patient is a 44-year-old male presenting with reports of increased depression. Patient reports that he has a history of depression in his been on SSRIs in the past. Reports that he is currently not on any medication, as he was doing well. Reports that his depression in his stemming from a recent breakup. He also stated that he had gotten off his SSRIs because he did not like how they made him feel. The patient to reports that he is also willing to do counseling. Denies any SI/HI. 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 [id number] Current occupational exposures/hazards: No Cognitive needs: No Hearing needs: No Vision needs: No Questionnaire Thrive Questionnaire Date Thrive assessed: 03/15/25 I am a: Patient What is your living situation today?: I have a steady place to live Within the past 12 months, did the food you bought not last and you didn't have the money to get more?: Never true Within the past 12 months, did you worry whether your food would run out before you got money to buy more?: Never true Do you have trouble paying for medicines?: No Do you have trouble getting transportation to medical appointments?: No Do you have trouble paying your heating and electricity bill?: No Do you have trouble taking care of your child, family member or friend?: No Do you have trouble with day-to-day activities such as bathing, preparing meals, shopping, managing finances, etc.?: No Are you currently unemployed and looking for a job?: No Are you interested in more education?: No Please select the resources that you would like help with: None Currently or been in a relationship where the following occur: No concerns reported THRIVE Score: 0 GREGORY-7 AMB Questionnaire GREGORY-7 Date GREGORY - 7 assessed: 06/14/24 Source: Developed by Drs. Selvin Lynn, Prema Ramirez, Sam Dunham and colleagues, with an educational danis from Currently. Review of Systems Const Denies body aches, Denies chills, Denies fever(s), Denies headache(s) and Denies poor appetite Eyes Reports no additional complaints ENT Denies dysphagia, Denies dizziness, Denies headache(s) and Denies odynophagia Card Denies chest pain, Denies syncope, Denies edema, Denies irregular heart rhythm, Denies lightheadedness and Denies dyspnea Resp Denies cough and Denies dyspnea GI Denies abdominal pain, Denies constipation, Denies dysphagia, Denies diarrhea, Denies nausea, Denies odynophagia and Denies vomiting Reports no additional complaints Musc Reports no additional complaints and Denies abnormal gait Skin/Breast Reports system reviewed and no additional complaints, except as documented Neuro Denies abnormal gait, Denies dizziness, Denies syncope and Denies headache(s) Psych Reports depression, Denies homicidal ideation, Denies suicidal ideation and Reports other (Increase stress) Physical exam (Primary Care) Vital Signs: Last Vital Signs Pulse 82 03/15/25 16:09 Resp 18 03/15/25 16:09 BP 130/70 03/15/25 16:09 Pulse Ox 97 03/15/25 16:09 Oxygen Delivery Method Room Air 03/15/25 16:09 BMI result Body Mass Index 34.5 Tobacco/Smoking Status: Tobacco use Status Tobacco use date assessed 03/15/25 03/15/25 16:10 Patient Tobacco Use Status Former Tobacco user 03/15/25 16:10 Tobacco use type Cigarette 03/15/25 16:10 e-Cigarette/Vaping Use Former Use 03/15/25 16:10 Thrive Assessment: Date of Thrive Assessment Date Thrive assessed 03/15/25 03/15/25 16:10 Currently or been in a relationship where the following occur: No concerns reported Const General: cooperative, healthy appearing, comfortable and no acute distress Orientation/consciousness: patient oriented x3 HENMT Head: Yes normocephalic Ears: hearing grossly normal bilaterally General nose exam: Normal external nose present Eyes General: appearance normal, both eyes and all related structures Conjunctivae: conjunctivae normal Neck Neck: Yes full ROM and Yes no lymphadenopathy Resp Effort & Inspection: normal respiratory effort Auscultation: clear to auscultation bilaterally, no crackles, no rales, no rhonchi and no wheezes Cardio Rate: regular rate Rhythm: regular rhythm Skin General skin exam: no rashes or lesions noted Neuro General: patient oriented x3 Gait exam (Neuro): Normal gait present Extrem General: Yes normal to inspection, Yes full ROM and No edema Psych Affect: normal affect Attitude: cooperative Insight: Good insight present (Psych) Judgement: Good judgement present (Psych) Coding Level of Care Code Est Pt Level 3 (06432) Diagnoses Depression with anxiety F41.8 Time Spent (min) 32 Assessment & Plan Assessment & Plan (1) Depression with anxiety: Code(s): F41.8 - Other specified anxiety disorders Category: Medical Plan: Patient reports a history of depression that has currently increase due to a recent break-up. He would like to try something other than a SSRI. He is also interested in counseling. Wellbutrin XL 150 mg daily ordered and the patient was also referred for counseling. Follow up in 4 weeks Orders: Referrals Counseling Referral F41.8 - Other specified anxiety disorders Medications: New bupropion HCl XL (Wellbutrin XL) 150 mg PO QAM 30 tabs 3RF
== END 2025-03-15 16:59 | disposition home or self-care (01) ==
LOC: HO.HMCH 16:07
PROVIDERS: PCP Internal Medicine
DX: F41.8 Other specified anxiety disorders (principal)